=== PATIENT | female | born 1985 | race Caucasian/White ===

== ENCOUNTER → 2019-07-15 | Outpatient (CLI) | payer OTHER ==
--- NOTE | 2019-07-16 04:59 | US ---
EXAMINATION TYPE: Ultrasound OB <= 14 week fetus DATE OF EXAM: 07/15/2019 6:27 PM COMPARISON: NONE CLINICAL HISTORY: 34-year-old female [id number] Confirm dates. . EXAM PERFORMED: Transabdominal (TA) FINDINGS: EXAM MEASUREMENTS: GESTATIONAL AGE / DATING Physician Established: Not yet established Dates by LMP: (10 weeks/4 days) EDC: 02/06/2020 Dates by First Scan: This is first scan Dates by Current Scan for: (10 weeks/6 days) EDC: 02/04/2020 MATERNAL ANATOMY Uterus: 12.2 x 9.1 x 7.2 cm. Right Ovary: 3.2 x 1.9 x 2.1 cm. Left Ovary: 3.1 x 2.2 x 2.1 cm. Two anechoic areas seen: #1 measures: 1.6 x 1.5 x 1.5 cm. #2 measures: 1.3 x 1.4 x 1.5 cm. Post CDS / Adnexa: none seen Presence of free fluid: none seen Presence of corpus luteal cyst: possible left ovary, as mentioned above two hypoechoic areas seen. Presence of subchorionic bleed: Hypoechoic areas seen. Right of gestational sac measures: 2.1 x 2.8 x 1.2 cm. Left of gestational sac measures: 2.8 x 1.5 x 2.0 cm. GESTATION / SURVEY CRL: 3.95 cm. (10 weeks/6 days) Yolk Sac (normal less than 6mm): 3.2 mm Heart Rate: 175 bpm, borderline elevated Rhythm: Regular. IUP: Viable IUP Date of LMP: 05/02/2019 IMPRESSION: 1. Single intrauterine with estimated gestational age of 10 weeks 4 days by LMP. Current ul trasound biometry is concordant (10 weeks 6 days). 2. Small to moderate-sized perigestational bleed on both the right and left sides of the gestational sac measuring up to 2.8 cm. Given this finding as well as borderline tachycardia (175 BPM), cachorro rt interval follow-up is recommended. 3. In addition, complete survey recommended at 18 - 20 weeks.
== END | disposition home or self-care (01) ==
LOC: RADUSMAIN 17:54
PROVIDERS: ATTEND Obstetrics & Gynecology
DX: Z36.89 Encounter for other specified antenatal screening (principal); O20.9 Hemorrhage in early pregnancy, unspecified; O36.8310 Maternal care for abnormalities of the fetal heart rate or rhythm, first trimester, not applicable or unspecified; Z3A.10 10 weeks gestation of pregnancy
CPT/HCPCS: 76801